=== PATIENT | female | born 1990 | race Caucasian/White ===

== ENCOUNTER 2017-08-13 08:10 | Observation (INO) | payer BC, OTHER ==
[2017-08-13] MEDS ORDERED: PROG100C4 BC (08:38)
== END 2017-08-13 09:00 | disposition home or self-care (01) | DRG 778 ==
LOC: LDRP 08:10
PROVIDERS: ADMIT Specialist; ATTEND Specialist
DX: O60.03 Preterm labor without delivery, third trimester (principal); Z3A.31 31 weeks gestation of pregnancy
CPT/HCPCS: 59025; 81002; G0378

== ENCOUNTER 2017-08-16 14:00 | Observation (INO) | payer BC ==
[~2017-08-16 14:00] MED LIST: PROG100C4 BC
[2017-08-16] MEDS ORDERED: PREN-96 PO (14:27)
== END 2017-08-16 14:45 | disposition home or self-care (01) | DRG 778 ==
LOC: LDRP 14:00
PROVIDERS: ADMIT Obstetrics & Gynecology; ATTEND Obstetrics & Gynecology
DX: O60.03 Preterm labor without delivery, third trimester (principal); Z3A.31 31 weeks gestation of pregnancy
CPT/HCPCS: 59025; 81002; G0378

== ENCOUNTER 2017-08-20 08:25 | Observation (INO) | payer BC ==
[~2017-08-20 08:25] MED LIST changes: +PREN-96 PO
== END 2017-08-20 09:05 | disposition home or self-care (01) | DRG 778 ==
LOC: LDRP 08:25
PROVIDERS: ADMIT Obstetrics & Gynecology; ATTEND Obstetrics & Gynecology
DX: O60.03 Preterm labor without delivery, third trimester (principal); Z3A.32 32 weeks gestation of pregnancy
CPT/HCPCS: 59025; 81002; G0378

== ENCOUNTER 2017-08-27 12:10 | Observation (INO) | payer BC | END 2017-08-27 13:10 | disposition home or self-care (01) | DRG 778 | LOC: LDRP 12:10 | PROVIDERS: ADMIT Specialist; ATTEND Specialist | DX: O60.03 Preterm labor without delivery, third trimester (principal); Z3A.33 33 weeks gestation of pregnancy | CPT/HCPCS: 59025; 81002; G0378 ==

== ENCOUNTER 2017-09-03 08:30 | Observation (INO) | payer BC ==
[2017-09-03] MEDS ORDERED: NIF10C GT (11:04)
== END 2017-09-03 09:20 | disposition home or self-care (01) | DRG 778 ==
LOC: LDRP 08:30
PROVIDERS: ADMIT Specialist; ATTEND Specialist
DX: O60.03 Preterm labor without delivery, third trimester (principal); Z3A.34 34 weeks gestation of pregnancy
CPT/HCPCS: 59025; 81002; G0378

== ENCOUNTER 2017-10-10 20:25 | Inpatient (IN) | payer BC ==
[~2017-10-10] VITALS: Ht 30.5 cm; Wt 0.5 kg
[~2017-10-10 20:25] MED LIST changes: +NIF10C GT
[2017-10-10] MEDS ORDERED: LACTATED RINGER'S 1,000 ML IV SCH (20:33)
[2017-10-10] MEDS ORDERED: LACT. RINGERS/OXYTOCIN 20UNITS 1,000 ML IV SCH (20:33)
[2017-10-10] MEDS ORDERED: METHYLERGONOVINE MALEATE 0.2 MG/ML AMP IM PRN (20:45)
[2017-10-10] MEDS ORDERED: LIDOCAINE 2% (LOCAL ANESTH.) PF 5ml SDV ID ONE (20:45)
[2017-10-10] MEDS ORDERED: PHISODERM TOP SOLN 240ML BTL TOP PRN (20:45)
[2017-10-10] MEDS ORDERED: WITCH HAZEL-GLYCERIN PAD TOP PRN (20:45)
[2017-10-10] MEDS ORDERED: NALBUPHINE HCL 10 MG/1ml INJECTION IV PRN (20:45)
[2017-10-10] MEDS ORDERED: DERMOPLAST 60ML BOTTLE TOP PRN (20:45)
[2017-10-10 21:15] LABS: Basophils # (auto) 0 uL; Basophils % (auto) 0.4 % (0.0-2.0); Eosinophils # (auto) 0 uL; Eosinophils % (auto) 0.4 % (0.0-7.0); Hematocrit 37.5 % (36.0-46.0); Hemoglobin 12.3 g/dL (12.2-16.2); Lymphocytes # (auto) 1.2 uL; Lymphocytes % (auto) 12.9 % (10.0-50.0); Mean Corpuscular Hemoglobin 28.4 pg (28.0-32.0); Mean Corpuscular Hgb Conc. 32.7 g/dL (32.0-36.0); Mean Corpuscular Volume 86.7 fL (80.0-100.0); Monocytes # (auto) 0.7 uL; Monocytes % (auto) 7.3 % (0.0-12.0); Neutrophils # (auto) 7.3 uL; Nucleated Red Blood Cells % 0.1 %; Platelet Count (auto) 205 10^3/uL (140-450); Red Blood Cells 4.32 10^6/uL (4.0-5.20); Red Cell Distribution Width 14.5 % (11.8-14.3); White Blood Cell 9.3 10^3/uL (4.4-10.8)
[2017-10-10 21:21] LABS: Urine Bacteria NONE SEEN /hpf (None Seen); Urine Blood 1+ /uL (Negative); Urine Mucus FEW (None Seen); Urine WBC 5 /hpf (0 - 5)
[2017-10-10 21:31] LABS: Albumin 2.8 g/dL (3.4-5.0); BUN/Creatinine Ratio 11.3; Calcium 8.2 mg/dL (8.5-10.1); Potassium 3.5 mmol/L (3.5-5.1)
[2017-10-10 21:34] LABS: Bilirubin, Total 0.3 mg/dL (0.2-1.0); Total Protein 7.1 g/dL (6.4-8.2)
[2017-10-10 21:36] LABS: INR 0.84 (0.9-1.15); Partial Thromboplastin Time 31.6 sec (22.64-33.71); Prothrombin Time 9.1 sec (9.37-12.3)
[2017-10-11] VITALS (7 sets, daily range): BP systolic 120–130; BP diastolic 64–82
[2017-10-11 01:58] LABS: Alcohol, Urine < 3.0 mg/dL (0-5); Amphetamine Screen, Urine NEGATIVE (NEGATIVE); Barbiturate Scree,Urine NEGATIVE (NEGATIVE); Benzodiazephine Screen, Urine NEGATIVE (NEGATIVE); Cannabinoid Screen, Urine NEGATIVE (NEGATIVE); Cocaine Screen, Urine NEGATIVE (NEGATIVE); Opiate Scree,Urine NEGATIVE (NEGATIVE); Phencyclidine Screen, Urine NEGATIVE (NEGATIVE)
[2017-10-11] MEDS ORDERED: IBUPROFEN 600 MG TAB PO ONE (04:13)
[2017-10-11] MEDS ORDERED: ACETAMINOPHEN 325 MG TAB PO PRN (04:45)
[2017-10-11] MEDS: IBUPROFEN 600 MG TAB PO PRN ×2 (16:24→20:00)
[2017-10-11] MEDS ORDERED: TETANUS-DIPTH-ACEL PERTUSSIS 0.5ML SYRG IM ONE (18:30)
== END 2017-10-11 22:20 | disposition home or self-care (01) | DRG 775 ==
LOC: LDRP 20:25
PROVIDERS: ADMIT Obstetrics & Gynecology; ATTEND Obstetrics & Gynecology
PROC: 10E0XZZ Delivery of Products of Conception, External Approach (ICD-10-PCS; principal; 2017-10-10)
PROC: 0HQ9XZZ Repair Perineum Skin, External Approach (ICD-10-PCS; 2017-10-10)
PROC: 0UQMXZZ Repair Vulva, External Approach (ICD-10-PCS; 2017-10-10)
DX: O62.3 Precipitate labor (principal); O69.81X0 Labor and delivery complicated by cord around neck, without compression, not applicable or unspecified; Z37.0 Single live birth; O70.0 First degree perineal laceration during delivery; O71.82 Other specified trauma to perineum and vulva; Z3A.39 39 weeks gestation of pregnancy
CPT/HCPCS: 36415; 59025; 59409; 80053; 80307; 81001; 85025; 85610; 85730; 86850; 86900; 86901; 90715; 96365; 96366; 96372; J2590

== ENCOUNTER → 2019-04-20 | Outpatient (CLI) | payer BC, OTHER ==
[~2019-04-20] MED LIST changes: -NIF10C GT; -PROG100C4 BC
== END | disposition home or self-care (01) ==
LOC: LAB 15:36
PROVIDERS: ATTEND Preventive Medicine Preventive Medicine/Occupational Environmental Medicine
DX: Z02.1 Encounter for pre-employment examination (principal); Z90.89 Acquired absence of other organs
CPT/HCPCS: 86735; 86762; 86765; 86787

== ENCOUNTER 2020-04-06 10:33 | Observation (INO) | payer OTHER | END 2020-04-06 11:53 | disposition home or self-care (01) | LOC: LDRP 10:33 | PROVIDERS: ADMIT Obstetrics & Gynecology; ATTEND Obstetrics & Gynecology | DX: O62.9 Abnormality of forces of labor, unspecified (principal); O62.3 Precipitate labor; Z3A.39 39 weeks gestation of pregnancy | CPT/HCPCS: 59025; 81002; G0378 ==

== ENCOUNTER 2020-04-06 17:25 | Inpatient (IN) | payer BC, OTHER ==
[~2020-04-06] VITALS: Ht 175.3 cm; Wt 88.9 kg
[2020-04-06] MEDS ORDERED: PHISODERM TOP SOLN 240ML BTL TOP PRN (17:45)
[2020-04-06] MEDS ORDERED: DERMOPLAST 60ML BOTTLE TOP PRN (17:45)
[2020-04-06] MEDS ORDERED: WITCH HAZEL-GLYCERIN PAD TOP PRN (17:45)
[2020-04-06] MEDS ORDERED: LACTATED RINGER'S 1,000 ML IV SCH (17:45)
[2020-04-06] MEDS ORDERED: LIDOCAINE 2%HCL (LOCAL ANESTH.) INJ 20ML MDV IJ ONE (17:45)
[2020-04-06] MEDS ORDERED: LACT. RINGERS/OXYTOCIN 20UNITS 1,000 ML IV ONE ×2 (17:59→18:00)
[2020-04-06 18:31] LABS: Basophils # (auto) 0 10 ^3/uL (0-0.2); Basophils % (auto) 0.4 % (0.0-2.0); Eosinophils # (auto) 0 10 ^3/uL (0-0.8); Eosinophils % (auto) 0.3 % (0.0-7.0); Hematocrit 37.1 % (36.0-46.0); Hemoglobin 12.5 g/dL (12.2-16.2); Lymphocytes # (auto) 1.3 10 ^3/uL (0.4-5.4); Lymphocytes % (auto) 15.3 % (10.0-50.0); Mean Corpuscular Hemoglobin 28.5 pg (28.0-32.0); Mean Corpuscular Hgb Conc. 33.6 g/dL (32.0-36.0); Mean Corpuscular Volume 84.9 fL (80.0-100.0); Monocytes # (auto) 0.6 10 ^3/uL (0-1.3); Neutrophils # (auto) 6.8 10 ^3/uL (1.6-8.6); Nucleated Red Blood Cells % 0.1 %; Platelet Count (auto) 211 10^3/uL (140-450); Red Blood Cells 4.37 10^6/uL (4.0-5.20); Red Cell Distribution Width 15.2 % (11.8-14.3); White Blood Cell 8.8 10^3/uL (4.4-10.8)
[2020-04-06 18:36] LABS: Urine Bacteria NONE SEEN /hpf (None Seen); Urine Blood Negative /uL (Negative); Urine Specific Gravity 1.023 (1.001-1.035); Urine WBC 2 /hpf (0 - 5)
[2020-04-06 18:45] LABS: INR 0.9 (0.9-1.15); Partial Thromboplastin Time 30.2 sec (23.0-31.2)
[2020-04-06 18:52] LABS: Albumin 2.7 g/dL (3.4-5.0); Alcohol, Urine < 3.0 mg/dL (0-10); Amphetamine Screen, Urine NEGATIVE (NEGATIVE); Barbiturate Scree,Urine NEGATIVE (NEGATIVE); Benzodiazephine Screen, Urine NEGATIVE (NEGATIVE); Calcium 8.4 mg/dL (8.5-10.1); Cannabinoid Screen, Urine NEGATIVE (NEGATIVE); Cocaine Screen, Urine NEGATIVE (NEGATIVE); Opiate Scree,Urine NEGATIVE (NEGATIVE); Phencyclidine Screen, Urine NEGATIVE (NEGATIVE); Potassium 3.5 mmol/L (3.5-5.1)
[2020-04-06 18:56] LABS: BUN/Creatinine Ratio 11.4; Bilirubin, Total 0.3 mg/dL (0.2-1.0); Total Protein 6.7 g/dL (6.4-8.2)
[2020-04-06] MEDS ORDERED: LACT. RINGERS/OXYTOCIN 20UNITS 1,000 ML IV SCH (19:00)
[2020-04-06] MEDS ORDERED: ACETAMINOPHEN 325 MG TAB PO PRN (19:30)
--- NOTE | 2020-04-06 21:00 | NUR ---
Ambulation: Patient OOB with standby assistance by RN. Patient ambulated to bathroom with steady gait. Patient able to void 200ml without difficulty. Pericare teaching provided with returned demonstration by patient. Clean gown provided and bed linen changed. Patient ambulated back to bed with steady gait and no distress noted.
[2020-04-06 22:30] VITALS: BP 132/76
[2020-04-07] MEDS: IBUPROFEN 600 MG TAB PO PRN ×2 (02:03→11:10)
[2020-04-07 02:30] VITALS: BP 123/76
[2020-04-07 07:00] VITALS: BP 130/82
[2020-04-07 11:00] VITALS: BP 125/74
--- NOTE | 2020-04-07 14:00 | NUR ---
Patient moved to room 8A with and all belongings.
[2020-04-07 14:30] VITALS: BP 121/76
--- NOTE | 2020-04-07 19:23 | NUR ---
Discharge: Discharge instructions given as ordered. Pt encouraged to follow up with [employer] as instructed. All questions and concerns addressed. Patient verbalized understanding. Medication reconciliation completed and copy given to patient. All required/requested vaccines given and copies of vaccinations given to patient. Patient encouraged to prepare to depart unit.
[2020-04-07 19:24] VITALS: BP 137/80
[2020-04-07 19:50] VITALS: BP 137/80
--- NOTE | 2020-04-07 19:50 | NUR ---
Discharge: Patient taken to vehicle via ambulation with all personal belongings, accompanied by staff and family member. No distress noted at time of departure, no adverse changes in status since initial assessment.
[2020-04-08 06:06] LABS: RPR Non Reactive (Non Reactive)
== END 2020-04-07 19:50 | disposition home or self-care (01) | DRG 807 ==
LOC: LDRP 17:25 → OBSVTOIN 17:40 → LDRP 19:17
PROVIDERS: ADMIT Obstetrics & Gynecology; ATTEND Obstetrics & Gynecology
PROC: 10E0XZZ Delivery of Products of Conception, External Approach (ICD-10-PCS; principal; 2020-04-06)
PROC: 0HQ9XZZ Repair Perineum Skin, External Approach (ICD-10-PCS; 2020-04-06)
DX: O62.3 Precipitate labor (principal); Z37.0 Single live birth; Z3A.39 39 weeks gestation of pregnancy; O70.0 First degree perineal laceration during delivery; Z20.828 Contact with and (suspected) exposure to other viral communicable diseases
CPT/HCPCS: 36415; 59025; 59409; 80053; 80307; 81001; 85025; 85610; 85730; 86592; 86850; 86900; 86901; 87426; 96360; 96365; 96366; G0378; J2590

== ENCOUNTER → 2020-11-25 | Outpatient (CLI) | payer OTHER | END | disposition home or self-care (01) | LOC: LAB 10:01 | PROVIDERS: ATTEND Nurse Practitioner Family | DX: Z20.9 Contact with and (suspected) exposure to unspecified communicable disease (principal) | CPT/HCPCS: 36415; 86706; 86735; 86762; 86765; 86787 ==

== ENCOUNTER 2024-06-09 14:48 | Inpatient (IN) | payer MEDICAID ==
[~2024-06-09] VITALS: Ht 175.3 cm; Wt 81.6 kg
[2024-06-09] MEDS ORDERED: WITCH HAZEL-GLYCERIN PAD TOP PRN (15:00)
[2024-06-09] MEDS ORDERED: DERMOPLAST 60ML BOTTLE TOP PRN (15:00)
[2024-06-09] MEDS ORDERED: BUTORPHANOL TARTRATE 2 MG/1 ML VIAL IV PRN ×2 (15:00)
[2024-06-09] MEDS ORDERED: PHISODERM TOP SOLN 240ML BTL TOP PRN (15:00)
[2024-06-09] MEDS: LACTATED RINGER'S 1,000 ML IV SCH (15:53)
[2024-06-09] MEDS: miSOPROStol 50 MCG per PRE-CUT 1/2 TAB PO PRN (16:39)
[2024-06-09 16:40] LABS: Basophils # (auto) 0 10 ^3/uL (0-0.2); Basophils % (auto) 0.4 % (0.0-2.0); Eosinophils # (auto) 0.1 10 ^3/uL (0-0.8); Eosinophils % (auto) 0.7 % (0.0-7.0); Hematocrit 36.7 % (36.0-46.0); Lymphocytes # (auto) 1.2 10 ^3/uL (0.4-5.4); Mean Corpuscular Hemoglobin 25.8 pg (28.0-32.0); Mean Corpuscular Hgb Conc. 32.8 g/dL (32.0-36.0); Mean Corpuscular Volume 78.7 fL (80.0-100.0); Monocytes # (auto) 0.5 10 ^3/uL (0-1.3); Monocytes % (auto) 6.1 % (0.0-12.0); Neutrophils # (auto) 6.1 10 ^3/uL (1.6-8.6); Neutrophils % (auto) 77.8 % (37.0-80.0); Nucleated Red Blood Cells % 0.1 %; Platelet Count (auto) 241 10^3/uL (140-450); Red Blood Cells 4.66 10^6/uL (4.0-5.20); Red Cell Distribution Width 16.7 % (11.8-14.3); White Blood Cell 7.9 10^3/uL (4.4-10.8)
[2024-06-09 16:46] LABS: Urine Bacteria FEW /hpf (None Seen); Urine Blood Negative /uL (Negative); Urine Clarity Turbid (Clear); Urine Color Colorless (Yellow); Urine Protein, UAD Negative (Negative); Urine Specific Gravity 1.007 (1.001-1.035); Urine Squamous Epithelial Cell FEW /hpf (<5); Urine Urobilinogen Normal (Negative); Urine WBC 1 /hpf (0 - 5)
[2024-06-09 16:52] LABS: Amphetamine Screen, Urine Neg (NEGATIVE); Barbiturate Scree,Urine Neg (NEGATIVE); Benzodiazephine Screen, Urine Neg (NEGATIVE); Cocaine Screen, Urine Neg (NEGATIVE); Opiate Scree,Urine Neg (NEGATIVE); Phencyclidine Screen, Urine Neg (NEGATIVE)
[2024-06-09 16:53] LABS: Cannabinoid Screen, Urine Neg (NEGATIVE)
[2024-06-09 16:53] LABS: Alanine Aminotransferase 14 U/L (7-40); Anion Gap 12 (5-15); Aspartate Aminotransferase 18 U/L (13-40); BUN/Creatinine Ratio 11.6 (10.0-20.0); Calcium 10.1 mg/dL (8.7-10.4); Chloride 105 mmol/L (98-107); Glucose 85 mg/dL (74-106); Potassium 3.6 mmol/L (3.5-5.1); Sodium 136 mmol/L (136-145)
[2024-06-09 16:54] LABS: Bilirubin, Total 0.4 mg/dL (0.2-1.0); Total Protein 6.8 g/dL (5.7-8.2)
[2024-06-09 16:55] LABS: Alkaline Phosphatase 186 U/L (46-116); Blood Urea Nitrogen 8 mg/dL (9-23); Carbon Dioxide 19 mmol/L (20-31)
[2024-06-09 17:00] LABS: INR 0.9 (0.9-1.15); Partial Thromboplastin Time 28.6 SEC (24.5-34.5); Prothrombin Time 9.6 sec (9.3-11.8)
--- NOTE | 2024-06-09 17:56 | DVHHP2 ---
OB CC & HPI Date Date of Admission: Jun 09, 2024 Patient Identification: : 6 Para: 3 EDC: Jun 21, 2024 EGA: 38.2 Chief Complaints: Reason for admission: induction of labor Indication for induction: medical complication (oligohydramnios) History of Present Complaints 33yo IUP@38.2wks presents for IOL for oligohydramnios (MINA 5.0cm in office today). Denies UCs/LOF/VB/PINON/vision changes/RUQ pain. Endorses +FM. PNC: Routine PNC at [facility] OB with Dr. Faith, adequate visits, PNC complicated by iron deficiency anemia. GTT wnl, dating based on LMP c/w 10wk sono, GBS negative. OB hx: #1: in 2015, preeclampsia #2: in 2017, uncomplicated #3: in 2019, uncomplicated #4: SAB #5: TAB Past Medical History Cardiac: No pertinent Hx Pulmonary: No pertinent Hx Central Nervous System: No pertinent Hx GI: No pertinent Hx Hemotology/Oncology: Iron deficiency anemia Hepatobiliary: No pertinent Hx Psychiatric: No pertinent Hx Musculoskeletal: No pertinent Hx Rheumotologic: No pertinent Hx Infectious Disease: No peritnent Hx ENT: No pertinent Hx Renal/: No pertinent Hx Endocrine: No pertinent Hx Dermatology: No pertinent Hx Past Surgical History: Tonsillectomy (2007) OB History OB History Care: Good Care Ultrasounds: Normal mid trimester US Obstetrical Complications: None Medical Complications: None Allergies: Coded Allergies: NO KNOWN ALLERGIES (Unverified , 09/03/17) Allergies NKDA Home Meds Reported Medications Vit W/ Ferrous Fumara ( One Daily) Daily Tab, 1 TAB PO DAILY, #90 TAB 3 Refills 08/16/17 Home Meds PNV Current Medications Current Medications Medications (Trade) Dose Ordered Sig/Kunal Route PRN Reason Start Time Stop Time Status Last Admin Lactated Ringer's 1,000 ml @ 125 mls/hr Q8H IV 06/09/24 15:00 06/09/24 15:53 Mera Capps (Tucks) 1 pad PRN PRN TOP PERINEAL AREA DISCOMFORT 06/09/24 15:00 Sodium Lauryl Sulfate (Phisoderm) 240 ml PRN PRN TOP PERINEAL AREA DISCOMFORT 06/09/24 15:00 Benzocaine (Dermoplast) 1 applic PRN PRN TOP PERINEAL AREA DISCOMFORT 06/09/24 15:00 Butorphanol Tartrate (Stadol Injection) 1 mg Q4HPRN PRN IV MODERATE PAIN (4-6 PAIN SCALE) 06/09/24 15:00 Butorphanol Tartrate (Stadol Injection) 2 mg Q4HPRN PRN IV SEVERE PAIN (7-10 PAIN SCALE) 06/09/24 15:00 Lidocaine HCl (Xylocaine) 20 ml ONCE PRN IJ PERINEAL AREA DISCOMFORT 06/09/24 15:00 Misoprostol (Cytotec) 50 mcg Q4HPRN PRN PO CERVICAL RIPENING 06/09/24 16:15 06/09/24 16:39 Family & Social History Family/Social History Past Family/Social History: denies Blood Type: O+ Rubella: immune RPR/VDRL: Negative GBS Status: Negative HBsAG: Negative Review of Systems Constitutional: No symptom reported Ears, Nose, & Throat: No symptom reported Eyes: No symptom reported Pulmonary/Respiratory: No symptom reported Cardiovascular: No symptom reported Gastrointestinal: No symptom reported Genitourinary: No symptom reported Musculoskeletal: No symptom reported Skin: No symptom reported Psychiatric: No symptom reported Endocrine: No symptom reported Hemotologic/Lymphatic: No symptom reported OB Admission Exam Physical Exam Vitals: VSS, see chart EFW in office today: 6lbs 4oz, vertex HEENT: TMs Normal, Fontanelles Normal, Nasal Mucosa Normal, Eyes non-injected, Oropharynx Normal, PERRLA, Moist Membranes, EOMI Heart: Rhythm Normal Lungs: Clear Abdomen: Gravid Extremities: Normal Reflexes: Normal Pelvic Exam: SVE by RN: 50/-3 Membranes: Intact Heart Rate: 140's Accelerations: Accelerations Present Decelerations: No Decelerations Pipe Fitter Ammonia Variability: Average (6-25) Contractions on Admission: < 5 Minutes Apart Intensity: Mild OB Plan Plan Admitting Diagnosis: Induction of Labor for oligohydramnios Plan: Induction Induction Methd: Misoprostol protocol Other Plan: A: 33yo IUP@38.2wks Induction of Labor for oligohydramnios Category I EFM Intact Membranes GBS negative P: Admit to L&D Informed consent obtained Discussed risks, benefits, alternatives of IOL for oligo with pt. Pt consents to IOL with PO cytotec. monitoring per order Routine labs ordered Pain mgmt PRN Frequent position changes in and out of bed encouraged Limit SVE unless necessary Intrauterine resuscitation PRN Anticipate CNM will consult with ROMULO Tovar CNM Jun 09, 2024 17:56
--- NOTE | 2024-06-10 01:21 | DVHPN2 ---
CNM Labor Progress Note Date and Time Seen Date Seen: Jun 09, 2024 Time Seen: 21:18 Subjective Patient reports: No new complaints Subjective Comment Pt consents to duran balloon insertion after discussion. Pt reports mild cramping. Objective Vital Signs VSS Monitoring Method Monitoring Method: External Heart Rate Heart Rate Baseline: 145 Heart Rate Variability: Moderate Presence of FHR Accelerations: Yes Presence of FHR Decelerations: No Are all 5 Components of the FH: Yes Contractions Contractions Frequency: Other (irregular) Duration of Contraction: 80 Contractions Intensity: Moderate Contractions Resting Tone: Relaxed Membranes Membranes: Intact Vaginal Exam Vag Exam Deferred: No (duran balloon placed with 60ml sterile water) Vaginal Exam Dilation: 2 Vaginal Exam Effacement: 70 Vaginal Exam Station: -3 Vaginal Exam Presentation: VTX Vaginal Exam Show: Small Medications Medications - Pitocin: No Medications - Pain Medications: PRN Medication - Epidural: No Medication - Other 1 dose of PO cytotec received Lab Results Lab Results Vital Signs Date Time Temp Pulse Resp B/P (MAP) Pulse Ox O2 Delivery O2 Flow Rate FiO2 06/10/24 19:00 Room Air 06/10/24 15:30 98.5 79 18 135/82 (99) 98 98.5 Current Medications Medications (Trade) Dose Ordered Sig/Kunal Start Time Stop Time Status Last Admin Dose Admin Lactated Ringer's 1,000 ml @ 125 mls/hr Q8H 06/09/24 15:00 06/10/24 10:54 DC 06/10/24 02:55 125 MLS/HR Mera Capps (Tucks) 1 pad PRN PRN 06/09/24 15:00 Sodium Lauryl Sulfate (Phisoderm) 240 ml PRN PRN 06/09/24 15:00 Benzocaine (Dermoplast) 1 applic PRN PRN 06/09/24 15:00 Butorphanol Tartrate (Stadol Injection) 1 mg Q4HPRN PRN 06/09/24 15:00 06/10/24 10:54 DC Butorphanol Tartrate (Stadol Injection) 2 mg Q4HPRN PRN 06/09/24 15:00 06/10/24 10:54 DC Lidocaine HCl (Xylocaine) 20 ml ONCE PRN 06/09/24 15:00 06/10/24 14:55 20 ML Misoprostol (Cytotec) 50 mcg Q4HPRN PRN 06/09/24 16:15 06/10/24 10:54 DC 06/09/24 16:39 50 MCG Oxytocin 1,000 ml @ 6 ml/hr Q24H 06/10/24 01:45 06/10/24 10:54 DC 06/10/24 02:54 6 ML/HR Terbutaline Sulfate (Brethine Inj) 0.25 mg ONCE PRN 06/10/24 01:45 Oxytocin 500 ml @ 999 mls/hr Q31M ONCE 06/10/24 08:15 06/10/24 08:45 DC 06/10/24 14:58 999 MLS/HR Oxytocin 500 ml @ 125 mls/hr Q4H ONCE 06/10/24 08:45 06/10/24 12:44 DC 06/10/24 14:59 125 MLS/HR Ibuprofen (Motrin Tablet) 600 mg Q6HP PRN 06/10/24 11:00 06/10/24 13:57 600 MG Acetaminophen (Tylenol Tablet) 650 mg Q4HP PRN 06/10/24 11:00 Ondansetron HCl (Zofran Po) 4 mg Q4HPRN PRN 06/10/24 11:00 Laboratory Tests Test 06/09/24 16:14 06/09/24 16:00 Range/Units White Blood Count 7.9 4.4-10.8 10^3/uL Red Blood Count 4.66 4.0-5.20 10^6/uL Hemoglobin 12.0 L 12.2-16.2 g/dL Hematocrit 36.7 36.0-46.0 % Mean Corpuscular Volume 78.7 L 80.0-100.0 fL Mean Corpuscular Hemoglobin 25.8 L 28.0-32.0 pg Mean Corpuscular Hemoglobin Concent 32.8 32.0-36.0 g/dL Red Cell Distribution Width 16.7 H 11.8-14.3 % Platelet Count 241 140-450 10^3/uL Mean Platelet Volume 9.4 6.9-10.8 fL Neutrophils (%) (Auto) 77.8 37.0-80.0 % Lymphocytes (%) (Auto) 15.0 10.0-50.0 % Monocytes (%) (Auto) 6.1 0.0-12.0 % Eosinophils (%) (Auto) 0.7 0.0-7.0 % Basophils (%) (Auto) 0.4 0.0-2.0 % Neutrophils # (Auto) 6.1 1.6-8.6 10 ^3/uL Lymphocytes # (Auto) 1.2 0.4-5.4 10 ^3/uL Monocytes # (Auto) 0.5 0-1.3 10 ^3/uL Eosinophils # (Auto) 0.1 0-0.8 10 ^3/uL Basophils # (Auto) 0 0-0.2 10 ^3/uL Nucleated Red Blood Cells 0.1 % Prothrombin Time 9.6 9.3-11.8 sec Prothrombin Time INR 0.90 0.9-1.15 Activated Partial Thromboplast Time 28.6 24.5-34.5 SEC Sodium Level 136 136-145 mmol/L Potassium Level 3.6 3.5-5.1 mmol/L Chloride Level 105 98-107 mmol/L Carbon Dioxide Level 19 L 20-31 mmol/L Anion Gap 12 5-15 Blood Urea Nitrogen 8 L 9-23 mg/dL Creatinine 0.69 0.550-1.02 mg/dL Glomerular Filtration Rate Calc 117 >90 mL/min BUN/Creatinine Ratio 11.6 10.0-20.0 Serum Glucose 85 74-106 mg/dL Calcium Level 10.1 8.7-10.4 mg/dL Total Bilirubin 0.4 0.2-1.0 mg/dL Aspartate Amino Transferase (AST) 18 13-40 U/L Alanine Aminotransferase (ALT) 14 7-40 U/L Alkaline Phosphatase 186 H 46-116 U/L Total Protein 6.8 5.7-8.2 g/dL Albumin 4.0 3.2-4.8 g/dL Rapid Plasma Reagin Pending Urine Color Colorless Yellow Urine Clarity Turbid H Clear Urine pH 6.0 5.0-9.0 Urine Specific Randolph 1.007 1.001-1.035 Urine Protein Negative Negative Urine Ketones Negative Negative Urine Blood Negative Negative /uL Urine Nitrite Negative Negative Urine Bilirubin Negative Negative Urine Urobilinogen Normal Negative mg/dL Urine Leukocyte Esterase 1+ Negative /uL Urine RBC 1 0 - 4 /hpf Urine WBC 1 0 - 5 /hpf Urine Squamous Epithelial Cells Few <5 /hpf Urine Bacteria Few H None Seen /hpf Urine Glucose Normal Normal mg/dL Urine Opiates Screen Neg NEGATIVE Urine Fentanyl Screen Neg NEGATIVE Urine Barbiturates Screen Neg NEGATIVE Urine Phencyclidine Screen Neg NEGATIVE Urine Amphetamines Screen Neg NEGATIVE Urine Benzodiazepines Screen Neg NEGATIVE Urine Cocaine Screen Neg NEGATIVE Urine Cannabinoids Screen Neg NEGATIVE Assessment Assessment 33yo IUP@38.2wks Induction of Labor for oligohydramnios Category I EFM Intact Membranes GBS negative Plan Plan RN to apply traction to duran balloon every hour monitoring per order Pain mgmt PRN Frequent position changes in and out of bed encouraged Limit SVE unless necessary Intrauterine resuscitation PRN Anticipate CNM will consult with Dr. Faith PRN Plan discussed with: Patient, Spouse ROMULO TAYLOR CNM Jun 10, 2024 01:21
[2024-06-10] MEDS ORDERED: TERBUTALINE SULFATE 1 MG/ML 1ML VIAL SC PRN (01:45)
[2024-06-10] MEDS: LACT. RINGERS/OXYTOCIN 20UNITS 1,000 ML IV SCH (02:54)
--- NOTE | 2024-06-10 10:40 | LDN2 ---
Labor and Delivery Note Date 06/10/24 Age 33 6 Para 4 AB 2 EDC 06-21-24 EGA 38+ Diagnosis term in labor, s/p Vaginal Delivery: VTX Vacuum Assisted: No Placenta: Spontaneous Sex: Male Weight Pending Apgars 8/9 Amniotic Fluid: Clear Anesthesia None Episiotomy: No Repaired with 1st degr perineal lac repaired 3-0 chromic EBL 100 mL Labs Laboratory Tests 11/25/20 10:15: Rubella Antibody Positive Blood Bank 06/09/24 16:14: Blood Type O POSITIVE Comments/Significant Med Tonya Doing well, uncomplicated INGRID TAVAREZ DO Jun 10, 2024 10:40
[2024-06-10] MEDS ORDERED: ONDANSETRON ODT 4 MG TAB PO PRN (11:00)
[2024-06-10] MEDS ORDERED: ACETAMINOPHEN 325 MG TAB PO PRN (11:00)
[2024-06-10] MEDS: IBUPROFEN 600 MG TAB PO PRN (13:57)
[2024-06-10] MEDS: LIDOCAINE 2%HCL (LOCAL ANESTH.) INJ 20ML MDV IJ PRN (14:55)
[2024-06-10] MEDS: LACT. RINGERS/OXYTOCIN 20UNITS 500 ML IV ONE ×2 (14:58→14:59)
[2024-06-10 15:30] VITALS: BP 135/82; PULSE 79; RESP 18; TEMP 98.5; O2SAT 98
[2024-06-10 19:00] VITALS: BP 125/70; PULSE 87; RESP 18; TEMP 98.4; O2SAT 99
[2024-06-10 23:19] VITALS: BP 122/69; PULSE 88; RESP 18; TEMP 98.4; O2SAT 98
[2024-06-11] MEDS ORDERED: DOCU-94 PO (00:30)
[2024-06-11] MEDS ORDERED: IBU600T PO (00:30)
--- NOTE | 2024-06-11 00:40 | DVHPN2 ---
Progress Note Date Seen: Jun 11, 2024 Subjective S: bleeding is less, eating food without issues, denies lightheaded/dizziness, pain well controlled with oral medications, no concerns with urinating, passing flatus, no BM yet, ambulating well, vital signs Vital Sign Date Time Temp Pulse Resp B/P (MAP) Pulse Ox O2 Delivery O2 Flow Rate FiO2 06/10/24 23:19 98.4 88 18 122/69 (86) 98 98.4 06/10/24 19:00 Room Air Total Intake and Output 06/10/24 06/10/24 06/11/24 15:00 23:00 07:00 Output Total 900 ml Balance -900 ml medications Current Medications Medications Dose Ordered Sig/Kunal Route Start Time Stop Time Status Last Admin Dose Admin Witch Génesis 1 pad PRN PRN TOP 06/09/24 15:00 Sodium Lauryl Sulfate 240 ml PRN PRN TOP 06/09/24 15:00 Benzocaine 1 applic PRN PRN TOP 06/09/24 15:00 Ibuprofen 600 mg Q6HP PRN PO 06/10/24 11:00 06/10/24 13:57 600 MG Acetaminophen 650 mg Q4HP PRN PO 06/10/24 11:00 Ondansetron HCl 4 mg Q4HPRN PRN PO 06/10/24 11:00 laboratory and microbiology Laboratory Tests 06/09/24 16:14 Test 06/09/24 16:14 Range/Units Serum Glucose 85 74-106 mg/dL Objective O: VSS Chest: heart sounds normal and lung sounds clear bilaterally Abd: soft, non-tender, fundus at U/firm/midline, active bowel sounds, no rebound or guarding Perineum: sutures intact, edges well approximated, no erythema/edema noted Ext: Non-tender, No edema, 2+ BLE DTRs Lochia: minimal See lab results Problems(with codes): (1) (normal spontaneous vaginal delivery) (2) First degree perineal laceration during delivery (3) Precipitous drop in hematocrit Assessment/Plan A: 33yo now PPD#1 s/p Rh+ Rubella Immune Pain control with PO medications Bowel regimen P: D/C home today Rx sent to pharmacy precautions and preeclampsia warning signs reviewed F/U with [facility] OB office in 2 weeks Plan discussed with: Patient, Spouse KALAICHA VELAZCOTAVIA BRAXTON Jun 11, 2024 00:40
--- NOTE | 2024-06-11 00:40 | DVHDS2 ---
Obstetrics Discharge Summary Obstetrics Discharge Summary Date of Admission: Jun 09, 2024 Date of Discharge: Jun 11, 2024 Reason For Admission: Induction of Labor (oligohydramnios) Procedures: NST, Mgmt of Obstetrics Compli (oligohydramnios) Intrapartum Procedures: Spontaneous vaginal deliv Procedures: Hct/date: (06/11/24), Hgb/date: (06/11/24) Operative Complicat: Laceration (first degree Perineal) Discharge Diagnosis: Term -Delivered Discharge Information: Activity (as tolerated, no heavy lifting and nothing in the vagina for 6 weeks), Diet (Routine), Medications (Rx sent), Instructions (Routine), Discharge to (Home), Accompanied by (partner), Discarge date (06/11/24) ROMULO TAYLOR CNM Jun 11, 2024 00:40
[2024-06-11 05:07] LABS: RPR Non Reactive (Non Reactive)
[2024-06-11 06:45] VITALS: BP 121/78; PULSE 83; RESP 16; TEMP 97.8; O2SAT 97
[2024-06-11] MEDS: DOCUSATE SOD 100 MG CAP PO ONE (07:07)
[2024-06-11 08:24] LABS: Hematocrit 31.3 % (36.0-46.0); Hemoglobin 10.1 g/dL (12.2-16.2); Lymphocytes # (auto) 1.5 10 ^3/uL (0.4-5.4); Mean Corpuscular Hemoglobin 25.5 pg (28.0-32.0); Mean Corpuscular Hgb Conc. 32.1 g/dL (32.0-36.0); Monocytes # (auto) 0.7 10 ^3/uL (0-1.3); Neutrophils # (auto) 6.7 10 ^3/uL (1.6-8.6); Red Cell Distribution Width 17.1 % (11.8-14.3); White Blood Cell 9.2 10^3/uL (4.4-10.8)
[2024-06-11 08:26] LABS: Basophils # (auto) 0 10 ^3/uL (0-0.2); Basophils % (auto) 0.5 % (0.0-2.0); Eosinophils # (auto) 0.1 10 ^3/uL (0-0.8); Eosinophils % (auto) 1.6 % (0.0-7.0); Lymphocytes % (auto) 16.6 % (10.0-50.0); Mean Corpuscular Volume 79.2 fL (80.0-100.0); Monocytes % (auto) 7.9 % (0.0-12.0); Neutrophils % (auto) 73.4 % (37.0-80.0); Platelet Count (auto) 230 10^3/uL (140-450); Red Blood Cells 3.96 10^6/uL (4.0-5.20)
[2024-06-11] MEDS ORDERED: FER325T PO (11:41)
== END 2024-06-11 11:51 | disposition home or self-care (01) | DRG 560 ==
LOC: UNDOADMIN 14:48 → LDRP 14:48
PROVIDERS: ADMIT Obstetrics & Gynecology; ATTEND Obstetrics & Gynecology
PROC: 10E0XZZ Delivery of Products of Conception, External Approach (ICD-10-PCS; principal; 2024-06-10)
PROC: 0HQ9XZZ Repair Perineum Skin, External Approach (ICD-10-PCS; 2024-06-10)
PROC: 3E0DXGC Introduction of Other Therapeutic Substance into Mouth and Pharynx, External Approach (ICD-10-PCS; 2024-06-10)
DX: O41.03X0 Oligohydramnios, third trimester, not applicable or unspecified (principal); Z37.0 Single live birth; D50.9 Iron deficiency anemia, unspecified; O70.0 First degree perineal laceration during delivery; O99.02 Anemia complicating childbirth; Z3A.38 38 weeks gestation of pregnancy
CPT/HCPCS: 36415; 59200; 59409; 80053; 80307; 81001; 81002; 85025; 85610; 85730; 86592; 86850; 86900; 86901; 94760; 94762; 96360; 96361; 96365; 96366; G0378; J2590